=== PATIENT | female | born 1995 | race Caucasian/White ===

== ENCOUNTER 2019-09-15 18:16 | Emergency (ER) | payer MEDICAID, SELFPAY ==
[2019-09-15 18:17] VITALS: BP 128/70; PULSE 112; RESP 16; TEMP 36.8; O2SAT 98; BMI 42.0
--- NOTE | 2019-09-15 19:27 | ED.VISSUMM ---
- ER Visit Summary Date of Service: 09/15/19 Chief Complaint: Bee sting History of Present Illness: The patient is a 24 F [facility] and also sees Dr. Carl. She is a G2, P1 at 18 weeks 3 days . She reports that 1130 this morning she was stung on the back of the left hand by a bee. She has taken 2 doses of Benadryl, 25 mg, with out relief. She is right-hand dominant. Patient denies any vaginal bleeding or discharge. She had normal movement. No fever or chills. No chest pain, cough, difficulty breathing. Physical Examination: Vitals: Stable. Afebrile. General: Well-nourished and well-developed. Head: Normocephalic atraumatic. Neck: Supple, no lymphadenopathy. No JVD. Nontender. Cardiovascular: Regular rate and rhythm. No murmurs. Respiratory: No respiratory distress. Clear to auscultation bilaterally. Abdominal: Soft, nontender, nondistended, normal bowel sounds. No guarding, rebound, or peritoneal signs. Gravid uterus. Back: Nontender. Extremities: Erythema, soft tissue swelling, and mild tenderness palpation over the left hand both anterior and posteriorly, no edema. Skin: Normal color, no rash. Neurologic: Alert and oriented ?3. Cranial nerves II through XII are intact. Normal strength and sensation. Psych: Normal affect. Emergency Department Course and Treatment: Patient was treated with Pepcid, Benadryl, and prednisone. She is resting comfortably. Treatment Plan: Patient will be discharged on the above medications. Instructed to follow-up with her primary care physician 1 to 2 days if not improving. Return to the emergency department for any worsening symptoms. Disposition: To home in improved and stable condition. Impression: 1. Bee sting left hand with localized reaction. 2. Second trimester . This note was generated with [employer] dictation software. It may contain incorrect words, spelling, and punctuation that were not noted in review of the chart prior to signing ED Disposition - Plan for ED Patient: Disposition: Home or Assisted Living Instructions: ALLERGIC REACTION, Insect (Local) Prescriptions: Prednisone [Deltasone] 60 mg PO DAILY #15 tab Prescription Printed Famotidine [Pepcid] 20 mg PO BID #28 tab Prescription Printed Referrals: Cristin Pittman MD [Primary Care Provider] - 3-5 Days if not improving
[2019-09-15] MEDS: DiphenhydrAMINE 25 MG Capsule 50 MG PO (19:32)
[2019-09-15] MEDS: predniSONE 20 MG Tablet 60 MG PO (19:32)
[2019-09-15] MEDS: Famotidine 20 MG Tablet PO (19:32)
== END 2019-09-15 19:50 | disposition home or self-care (01) ==
LOC: ED 19:58
PROVIDERS: Emergency Provider Emergency Medicine; Family Provider Internal Medicine; PCP Internal Medicine
DX: O9A.212 Injury, poisoning and certain other consequences of external causes complicating pregnancy, second trimester (principal); T63.441A Toxic effect of venom of bees, accidental (unintentional), initial encounter; Y92.9 Unspecified place or not applicable; Z3A.18 18 weeks gestation of pregnancy
CPT/HCPCS: 99282

== ENCOUNTER 2020-02-06 07:00 | Inpatient (IN) | payer MEDICAID, SELFPAY ==
[2020-02-06] VITALS (64 sets, daily range): BP systolic 113–166; BP diastolic 55–95; PULSE 96–137; TEMP 36.6–37.8; O2SAT 94–100; BMI 44.3
[2020-02-06] MEDS: Lactated Ringers 1,000 ML 50 ML IV (07:52)
[2020-02-06] MEDS: Oxytocin 30 units/NS 500 ml 30 UNITS/500 ML IV.SOLN IV (07:52)
[2020-02-06 07:57] LABS: Absolute Lymphocyte Count 2.33 X10^3/uL (0.83-4.51); Absolute Neutrophil Count 6.8 X10^3/uL (2.0-7.7); Basophil# 0.04 X10^3/uL; Basophil% 0.4 % (0-1); Eosinophil# 0.04 X10^3/uL; Eosinophils% 0.4 % (0-5); Hematocrit 35.2 % (37-47); Hemoglobin 11.4 g/dL (12.0-15.0); Lymphocyte # 2.33 X10^3/ul (4.0); Lymphocyte % 24.3 % (19-41); Mean Corp Hgb Conc 32.4 g/dL (32-36); Mean Corpuscular Hgb 24.7 pg (27.0-32.0); Mean Corpuscular Volume 76.2 fL (81-99); Mean Platelet Vol. 11.2 fl (6.2-12.0); Monocyte# 0.36 X10^3/uL; Monocyte% 3.8 % (0-10); NRBC Flagged by Analyzer 0 % (0-5); Neutrophil # 6.75 X10^3/uL (2.7-7.7); Neutrophil % 70.5 % (47-70); Platelet Count 182 K/mm3 (150-450); RBC Distribution Width CV 14.1 % (11.6-14.6); RBC Distribution Width SD 38.3 fl (35.1-43.9); Red Blood Count 4.62 M/mm3 (4.2-5.4); White Blood Count 9.6 K/mm3 (4.4-11.0)
[2020-02-06] MEDS: 0.9% Normal Saline Single 100 ML IV.SOLN. IY (08:47)
--- NOTE | 2020-02-06 08:53 | HP.PCM_ITS ---
- Problem List (1) 39 weeks gestation of Status: Acute (2) Multiparity Status: Acute (3) BMI 40.0-44.9, adult Status: Acute History Date of Admission: 02/06/20 Final CINDY: 02/12/20 Final CINDY Source: LMP Gestational age: 39 Weeks and 1 Days History of this : This is a 24 year-old, G 2, P 1002, at 39 weeks gestational age. Here for induction of labor for obesity. Medical History: Medical History (Last Updated 02/06/20 @ 08:56 by Isadora Issa CNM) History of gestational diabetes in prior , currently O09.299, Z86.32 Surgical History: Surgical History (Last Updated 02/06/20 @ 08:58 by Isadora Issa CNM) History of tooth extraction K08.409 Allergies No Known Allergies Allergy (Verified 09/15/19 18:17) Home Medications: Home Medications Famotidine [Pepcid] 20 mg PO BID 02/06/20 Vits [Prenatabs FA] 1 tab PO DAILY 02/06/20 Smoking Status: Never smoker Alcohol: None Substance Use Type: Alcohol NST - FHR Rate Baby A Baseline: 150 Variability:: Moderate Accelerations:: 15 x 15 NST Reactive:: Yes FHR Category:: Category I History Past Pregnancies: Past Pregnancies Delivery Date Name GA/ Weeks Outcome Route Wt Infant Sex Labor Length Anesthesia Delivery Location Provider FOB 37 Twins Labs: A-/ Imm/ Hep B-/ HIV -/ GC/CT-/ Hbg 11.7 Ptl= 196 GTT- 144, 3 hour normal Expected Delivery Method: Spontaneous Vaginal Review of Systems Gynecological: Reports: - - No contractions, LOF, VB Physical Exam Vitals: Vital Signs Temp Pulse BP Pulse Ox 98.0 F 108 H 123/69 H 98 02/06/20 07:53 02/06/20 07:53 02/06/20 07:53 02/06/20 07:53 General: Alert, No apparent distress Abdomen: Soft, Gravid Extremities:: No edema Neurological: Neuro grossly intact [employer]: Normal external genitalia Estimated gestational size: Appropriate for gestational size Cervix Dilation (cm): 1 Station: -3 Effacement (%): 0 Assessment/Plan All Active Problems 39 weeks gestation of (Acute) Multiparity (Acute) BMI 40.0-44.9, adult (Acute) This is a 24 year-old, G 2, P 1002, at 39 weeks gestational age. Presents for scheduled induction of labor for obesity. *Intracervical galeana placed in usual fashion and pitocin gtt started *GBS- *Routine intrapartum care *Pelvis adequate and EFW < 4500 grams *Anticipate
[2020-02-06] MEDS: Lactated Ringers 500 ML 999 ML IV (10:21)
[2020-02-06] MEDS: fentaNYL-bupivacaine (epidural) 100 ML BAG EPIDURAL ×2 (12:26→18:40)
--- NOTE | 2020-02-06 12:58 | PCM.PN.BLA ---
Progress Note At bedside to assess patient. Just received epidural and is comfortable. CE completed and is 3/60/-3. Unable to A.R.O.M. Will continue to titrate pitocin. Continue plan of care. Dr. Carter present and agrees with plan. Anticipate . STROKE Vital Signs/Narrative: Vital Signs Temp Pulse BP Pulse Ox 02/06/20 12:52 111 H 130/84 H 02/06/20 12:48 103 H 100 02/06/20 12:47 113 H 128/66 H 02/06/20 12:43 117 H 100 02/06/20 12:42 126 H 132/67 H 02/06/20 12:38 121 H 100 02/06/20 12:37 125 H 124/65 H 02/06/20 12:33 137 H 100 02/06/20 12:32 121 H 127/67 H 02/06/20 12:28 99.0 F 116 H 99 02/06/20 12:27 127 H 135/75 H 02/06/20 12:23 117 H 144/83 H 99 02/06/20 12:18 97 99 02/06/20 12:17 115 H 136/87 H 02/06/20 12:13 109 H 98 02/06/20 12:12 114 H 138/75 H 02/06/20 12:08 114 H 132/81 H 98 02/06/20 12:03 107 H 99 02/06/20 12:02 108 H 142/89 H 02/06/20 11:58 108 H 99 02/06/20 11:57 109 H 137/95 H 02/06/20 11:53 112 H 98 02/06/20 11:52 108 H 132/91 H 02/06/20 11:48 110 H 99 02/06/20 11:43 109 H 98 02/06/20 11:38 110 H 99 02/06/20 11:33 105 H 98 02/06/20 11:28 104 H 99 02/06/20 11:23 106 H 99 02/06/20 11:18 107 H 99 02/06/20 11:13 109 H 98 02/06/20 11:08 104 H 99 02/06/20 11:07 99.1 F 105 H 132/81 H 02/06/20 11:03 105 H 99 02/06/20 10:06 96 125/72 H 02/06/20 10:05 99.1 F 96 02/06/20 08:59 98.1 F 97 122/83 H 98
[2020-02-06] MEDS: Lactated Ringers 1,000 ML 200 ML IV ×2 (14:59→20:03)
--- NOTE | 2020-02-06 17:42 | PCM.PN.BLA ---
Progress Note Patient resting comfortably. Denies any pain at this time. Evaluated patient at bedside. A.R.O.M for large amount of clear fluid. FSE and IUPC placed due to difficulty tracing. Pitocin remains at 14mu/min. Continue plan of care. Continue to titrate pitocin. -FHT 140 bpm with moderate variability. Positive accelerations and no decelerations noted. Category 1 tracing. -TOCO unable to trace contractions but nurse able to palpate mild/moderate with relaxation in between. -CE- 4.5/60/-1 Dr. Carter updated and agrees with plan of care. Anticipate . STROKE Vital Signs/Narrative: Vital Signs Temp Pulse BP Pulse Ox 02/06/20 17:05 105 H 118/55 L 02/06/20 17:04 94 02/06/20 17:03 100.0 F H 109 H 98 02/06/20 16:03 97.9 F 113 H 119/58 L 98 02/06/20 14:57 113 H 98 02/06/20 14:56 110 H 117/71 02/06/20 14:55 99.3 F H
--- NOTE | 2020-02-06 22:02 | PCM.PN.BLA ---
Progress Note Continues to deny any pain. Denies feeling any contractions. Pitocin at 20mu/min. CE- 5/60/-1. Some scant bloody show. Category 1 tracing. IUPC showing contractions every 2-4 minutes. -Continue present management -Anticipate . STROKE Vital Signs/Narrative: Vital Signs Temp Pulse BP Pulse Ox 02/06/20 21:01 125 H 130/60 H 02/06/20 21:00 98 02/06/20 20:57 98.9 F 02/06/20 20:55 98.9 F 02/06/20 19:26 98.3 F 108 H 125/64 H 98 02/06/20 19:05 98.1 F 02/06/20 19:04 118 H 130/74 H 99 02/06/20 18:04 121 H 132/63 H 02/06/20 18:03 98.4 F 96
[2020-02-07] VITALS (30 sets, daily range): BP systolic 95–143; BP diastolic 61–80; PULSE 80–122; RESP 14–16; TEMP 36.4–37.2; O2SAT 96–98
[2020-02-07] MEDS: Oxytocin 30 units/NS 500 ml 30 UNITS/500 ML IV.SOLN 334 UNITS IV (01:55)
--- NOTE | 2020-02-07 02:04 | PCM.OPRPT ---
Problem List (1) 39 weeks gestation of Status: Acute (2) Multiparity Status: Acute (3) BMI 40.0-44.9, adult Status: Acute Report of Operation Date of Procedure: 02/07/20 Pre-Operative Diagnosis: 39 week gestation, multiparous patient, obesity in Post-Operative Diagnosis: As above Surgery/Procedure Performed:: Description of Surgical Findings:: Viable male delivered in right occiput anterior position. Normal and intact appearing placenta. Three-vessel cord. Type of Anesthesia:: Epidural Special Medications: None Specimen's removed: Placenta Drains: Andersen Estimated Blood Loss (mL): 150 Description of Procedure: Patient complete and pushing. Head, anterior shoulder, posterior shoulder delivered without any force or delay. Viable male infant delivered atraumatically and placed on maternal abdomen. Cord was clamped and cut after 60 sec delay. Cord blood was obtained. Placenta was delivered with gentle traction on the cord. Placenta was noted to be intact and normal-appearing with a three-vessel cord. Fundus was firm and bleeding hemostatic. No lacerations were noted. A vaginal sweep was performed and sponge counts were correct. Delivery performed by Isadora Issa CNM. Doris Carter DO was present for the entire delivery. Grafts/Implants Used: None - Complications None - Admit VTE Documentation VTE Present on Admission: No VTE Pharm Prophylaxis ordered?: No Vaginal Delivery Maternal Presentation: Medically Indicated Induction Method of Induction: Pitocin, Andersen Bulb, Amniotomy Medical Reason for Induction: - - Obesity Amniotic Membrane Rupture Type: Artificial Rupture of Membrane time: ~1730 Amniotic Fluid Description: Clear Final CINDY: 02/12/20 Gestational age: 39 Weeks and 2 Days Surgery/ Procedure Performed: Spontaneous Vaginal Delivery Type of Anesthesia: Epidural Presentation: Vertex Placental Delivery Description: Expressed Cord Vessel Description: 3 Vessels Cord Entanglement: None Drain: Andersen to straight drain Infant A gender: Male (1 minute): 8 (5 minute): 9 Episiotomy Description: None Laceration: None Medications given after delivery: IV Pitocin Complications: None
[2020-02-07] MEDS: Methylergonovine 0.2 MG/ML Ampul IM (02:38)
[2020-02-07] MEDS: Ibuprofen 600 MG Tablet PO (11:26)
[2020-02-08 04:40] VITALS: BP 119/76; PULSE 99; RESP 18; TEMP 36.9
[2020-02-08 04:43] VITALS: BP 119/76; PULSE 99
--- NOTE | 2020-02-08 08:36 | PCM.PN.OB ---
Patient Problems: Active and Suspected Problems (Last Updated 02/06/20 @ 08:56 by Isadora Issa CNM) 39 weeks gestation of (Acute) Multiparity (Acute) BMI 40.0-44.9, adult (Acute) Subjective: pt seen at bedside, doing well. pt reports good pain control. lochia mild. voiding w/o difficulty. Breast feeding. - Physical Exam Vitals/I&O's: Vital Signs Temp Pulse Resp BP Pulse Ox 98.4 F 99 18 119/76 98 02/08/20 04:40 02/08/20 04:43 02/08/20 04:40 02/08/20 04:43 02/07/20 16:15 Oxygen Delivery Method Room Air Weight: 110 kg Body Mass Index (BMI) 44.3 Intake and Output for Last 24 Hours 02/06/20 02/07/20 02/08/20 23:59 23:59 23:59 Intake Total 3584.95 / 3584.95 830.2 / 830.2 Output Total 1550 / 1550 900 / 900 Balance 2034.95 / 2034.95 -69.8 / -69.8 General: Alert, Oriented x3 Abdomen: Soft, Non Tender, Non-Distended, - - fundus firm Extremities: No Calf Tenderness Current Medications Acetaminophen (Tylenol) 1,000 mg PO Q8H PRN PRN PRN Reason: Pain Score 1-10/10 Bisacodyl (Dulcolax) 10 mg RECTAL UD PRN PRN Reason: If no BM Dibucaine (Dibucaine) 1 applic TOPICAL TID PRN PRN; Protocol PRN Reason: Discomfort Hydrocortisone (Hytone) 1 applic TOPICAL TID PRN PRN; Protocol PRN Reason: Discomfort Ibuprofen (Motrin) 600 mg PO Q6H PRN PRN PRN Reason: Pain Score 1-3/10 Last Admin: 02/07/20 11:26 Dose: 600 mg Documented by: Methylergonovine Maleate (Methergine) 0.2 mg IM X1 PRN PRN Reason: Excess bleeding/uterine atony Last Admin: 02/07/20 02:38 Dose: 0.2 mg Documented by: Ondansetron HCl (Zofran) 4 mg IV Q4H PRN PRN PRN Reason: Nausea Senna/Docusate Sodium (Senokot-S, Lupe-Colace) 1 - 2 tablet PO DAILY PRN PRN PRN Reason: Constipation Simethicone (Mylicon) 80 mg PO PCHS PRN PRN Reason: Indigestion/Stomach pain Sodium Chloride () 5 - 15 ml IV UD PRN PRN Reason: SALINE FLUSH Medical Necessity - Tobacco Use Smoking Status: Never smoker Assessment/Plan All Active Problems (Last Updated 02/06/20 @ 08:56 by Isadora Issa CNM) 39 weeks gestation of (Acute) Multiparity (Acute) BMI 40.0-44.9, adult (Acute) PPD#1, doing well routine care pain mgmt dc home
--- NOTE | 2020-02-08 08:38 | DCINST_ITS ---
Discharge Diet: No Restrictions Discharge Activity: Return to Normal Activity, May not drive while taking narcotic pain medications., May Shower May resume sexual activity in: 4-6 weeks Additional Activity Instructions:: Nothing in the vagina for 4-6 weeks. You may return to work/school in 6 weeks. Call your doctor if your incision/area has: Continuous Slow Oozing, Sudden Increased Bleeding, Increased Pain/ Swelling, Increased Redness, Foul Smelling Discharge Additional Instructions: If you experience any of the following, contact your healthcare provider. * Bleeding that soaks a pad every hour for 2 hours * Fever 100.4 or higher * Unrelieved incision or abdominal pain * Swelling, redness, discharge or bleeding from your incision or episiotomy site * Your incision begins to separate * Problems urinating (including inability to urinate or burning while urinating). * Visual changes * Severe headache * Flu-like symptoms * Pain or redness in one of both of your breasts * Pain, warmth, tenderness or swelling in your legs, especially the calf area * Frequent nausea and vomiting * Symptoms of depression or anxiety If you experience any of the following, call 911 or go to the nearest Emergency Room. * Chest pain * Problems breathing * Seizure activity * Partial or complete paralysis of a body part, slurred speech, weakness or drooping of the face, or a sudden inability to walk or hold your balance Allergies/Adverse Reactions: Allergies No Known Allergies Allergy (Verified 09/15/19 18:17) Medications to take at Discharge Famotidine [Pepcid] 20 mg PO BID 02/06/20 Vits [Prenatabs FA ] 1 tab PO DAILY 02/06/20 Acetaminophen [Tylenol] 1,000 mg PO Q8H PRN PRN tab 02/08/20 When: Call to make an appointment with your doctor 1-2 weeks (virtual visit preferred) and then again in 6 weeks. If you had elevated Blood Pressure or 4th degree laceration you will need to be seen in 2 weeks. Primary Care Physician: Cristin Pittman MD [Primary Care Provider] - Test Results: Test results from this visit will be discussed in further detail at your follow- up appointment, if applicable.
[2020-02-08 10:00] VITALS: BP 116/63; PULSE 94; RESP 16; TEMP 36.6
[2020-02-08 10:01] VITALS: BP 116/63; PULSE 94
[2020-02-08 14:00] VITALS: BP 115/76; PULSE 76; RESP 12; TEMP 36.4
[2020-02-08 14:05] VITALS: BP 115/76; PULSE 97; TEMP 36.4
--- NOTE | 2020-02-08 16:14 | NURSING ---
1600 Pt states she wants to go home today and feels able to take care of herself and her baby. To car via wheelchair with baby in car seat.
== END 2020-02-08 16:00 | disposition home or self-care (01) | DRG 560 ==
PROVIDERS: Admitting Provider Obstetrics & Gynecology; PCP Internal Medicine; Referring Provider Obstetrics & Gynecology; Visit Provider Obstetrics & Gynecology
DX: O99.214 Obesity complicating childbirth (principal); E66.9 Obesity, unspecified; Z86.32 Personal history of gestational diabetes; Z3A.39 39 weeks gestation of pregnancy; Z37.0 Single live birth
CPT/HCPCS: 59025; 59050; 85025; 86850; 86900; 86901; 99218; J7120; G0378

== ENCOUNTER 2025-03-03 01:01 | Emergency (ER) | payer BC, SELFPAY ==
[2025-03-03 01:01] VITALS: BP 147/87; PULSE 85; RESP 17; TEMP 36.4; O2SAT 100; BMI 45.6
--- NOTE | 2025-03-03 01:09 | ED.VIS.DENTA ---
HPI History of Present Illness Chief Complaint: Dental Informant: patient Narrative Narrative: Left mandibular molar dental pain for weeks, pain getting worse over the course of the day. No systemic symptoms or fever/chills, no bleeding, no discharge, no swelling in her face. [facility] Medical History (Updated 03/03/25 @ 01:[address] Elan Adam MD) Gestational diabetes BMI 40.0-44.9, adult Home Medications ?Medication ?Instructions ?Recorded ?Last Taken ?Type famotidine 20 mg tablet 20 mg PO BID heartburn 02/06/20 02/05/20 22:00 History vits,calcium no.78-iron 1 tab PO DAILY 02/06/20 02/03/20 10:00 History fumarate-folic acid 29 mg-1 mg tablet acetaminophen 500 mg tablet 1,000 mg (2 x 500 mg) PO Q8H PRN 02/08/20 Unknown Rx PRN Pain Score 1-10/10 amoxicillin 500 mg tablet 500 mg PO TID #30 tabs 03/03/25 Unknown Rx Allergy/AdvReac Type Severity Reaction Status Date / Time No Known Allergies Allergy Verified 03/03/25 01:01 Surgical History History of tooth extraction Social History Smoking Status: Never smoker ROS ROS ED Constitutional Constitutional ED: Denies chills or fever(s) Eyes Eyes: Denies change in vision or double vision ENT ENT ED: Reports dental pain; Denies sinus pain or throat swelling Cardiovascular Cardiovascular: Denies chest pain or palpitations Respiratory/Chest Respiratory/Chest: Denies cough or dyspnea Integumentary Denies abscess or rash Neurologic Neurologic: Denies headache(s), paresthesias or weakness EXAM Physical Exam Const Vital Signs: 03/03/25 01:01 Temperature 97.6 F L Temperature Source Oral Pulse Rate 85 Respiratory Rate 17 Blood Pressure 147/87 H Blood Pressure Mean 107 Pulse Ox 100 Oxygen Delivery Method Room Air Positive well nourished and well developed Constitutional Narrative: Well-appearing no distress General Appearance ED: well developed and NAD HEENT HEENT Narrative: No trismus. There is an obvious caries at the base laterally of tooth #18 which is tender. There is no associated abscess, bleeding, gingivitis/swelling. No tongue elevation, no sublingual tenderness. No submandibular tenderness or asymmetry externally. No dysphonia. Face and Sinus: sinuses nontender Throat: posterior oropharynx normal Eyes PERRL and EOMs intact bilaterally Neck no lymphadenopathy and supple Resp normal respiratory effort Neuro oriented x3 and CN's II-XII intact bilaterally Sensorium / Orientation: alert Gait (Neuro): normal gait Psych mental status grossly normal and thought process normal Skin no rashes or lesions noted and no wounds MDM MDM MDM Narrative Medical decision making narrative: Consistent with a painful dental jose, she is requesting antibiotics which are entirely reasonable to prevent abscess formation which I do not see right now. Given dental referral list. Discharge Plan Triage Chief Complaint: Dental ED Provider: Elan Adam Dx/Rx/DC Orders Clinical Impression: Odontalgia, Dental caries Instructions: ED Dental Cavity Prescriptions: New amoxicillin 500 mg tablet 500 mg PO TID Qty: 30 0RF No Action vit,[id number] 1 TABLET tablet 1 tab PO DAILY famotidine 20 MG tablet 20 mg PO BID acetaminophen 500 MG tablet 1,000 mg PO Q8H PRN PRN (Reason: Pain Score 1-10/10) 0RF Primary Care Provider: Cristin Pittman Referrals: Dentist,Your [STAFF PHYSICIAN] - As soon as possible Print Language: Mauritanian Disposition Disposition: Home, Self Care
[2025-03-03] MEDS: AMOXICILLIN 500 MG CAPSULE PO (01:25)
[2025-03-03] MEDS: Naproxen 500 MG Tablet PO (01:25)
== END 2025-03-03 01:25 | disposition home or self-care (01) ==
LOC: ED 01:16
PROVIDERS: Emergency Provider Emergency Medicine; PCP Internal Medicine; Visit Provider Emergency Medicine
DX: K08.89 Other specified disorders of teeth and supporting structures (principal); K02.9 Dental caries, unspecified
CPT/HCPCS: 99283